=== PATIENT | female | born 1990 | race Caucasian/White ===

== ENCOUNTER 2021-02-22 22:06 | Emergency (ER) | payer MEDICAID ==
[~2021-02-22] VITALS: Ht 157.5 cm; Wt 68.0 kg
[2021-02-22 22:06] VITALS: BP 129/64
[2021-02-22] MEDS ORDERED: KETOROLAC TROMETHAMINE INJ 60 MG/2 ML VIAL IM ONE (23:30)
[2021-02-22] MEDS ORDERED: KETOROLAC TROMETHAMINE INJ 30 MG/ML VIAL ONE (23:34)
[2021-02-22] MEDS ORDERED: AMOX-430 PO (23:39)
[2021-02-22] MEDS ORDERED: IBUP-1957 PO (23:39)
== END 2021-02-22 23:56 | disposition home or self-care (01) ==
LOC: ER 22:12
DX: K08.89 Other specified disorders of teeth and supporting structures (principal); R51.9 Headache, unspecified; Z79.899 Other long term (current) drug therapy
CPT/HCPCS: 84703; 96372; 99283; J1885